=== PATIENT | male | born 1940 | race Two or more races ===

== ENCOUNTER 2019-08-01 05:30 | Day surgery (SDC) | payer OTHER | END 2019-08-01 09:30 | disposition home or self-care (01) | LOC: AMB-ENDOS 05:30 | DX: D12.2 Benign neoplasm of ascending colon (principal); K64.2 Third degree hemorrhoids ==

== ENCOUNTER 2019-09-10 08:15 | Day surgery (SDC) | payer OTHER ==
[~2019-09-10 08:15] MED LIST: AVAPRO75 MG PO; HEMAPLEX PO; HYOSCYAMINE0.125 M2 PO; LANOXIN125 MCG PO; MAXIMUM D310000 UNIT PO; POLY119PG PO; PROSCAR5 MG PO; PROTONIX40 M1 PO; TAMS0.4C PO; TOPROL XL50 M1 PO; ZANAFLEX2 M1 PO; ZOCOR20 MG PO
== END 2019-09-10 22:10 | disposition home or self-care (01) ==
LOC: CIR.AMB 08:15
DX: K64.8 Other hemorrhoids (principal); K64.4 Residual hemorrhoidal skin tags

== ENCOUNTER 2019-09-25 11:53 | Emergency (ER) | payer OTHER ==
[~2019-09-25] VITALS: Ht 167.6 cm; Wt 66.2 kg
== END 2019-09-25 20:15 | disposition home or self-care (01) ==
LOC: ER 11:53
DX: K57.90 Diverticulosis of intestine, part unspecified, without perforation or abscess without bleeding (principal)